=== PATIENT | male | born 1975 | race Caucasian/White ===

== ENCOUNTER 2020-01-03 08:29 | Outpatient (REF) | payer OTHER, SELFPAY ==
[2020-01-03 12:08] LABS: Anion Gap 12 (12-20); Blood Urea Nitrogen 18 mg/dL (9-16); Calcium 9.5 mg/dL (8.4-10.2); Carbon Dioxide 28 mmol/L (22-29); Chloride 105 mmol/L (96-108); Cholesterol 226 mg/dL; Estimated Glomerular Filt Rate > 60; Glucose Fasting 98 mg/dL (60-99); HDL Cholesterol 55 mg/dL; LDL Cholesterol Calculated 160 mg/dl; Potassium 4.7 mmol/l (3.3-5.1); Sodium 140 mmol/L (135-145); Triglycerides 55 mg/dL
== END 2020-01-03 08:30 | disposition home or self-care (01) ==
LOC: HO.HMGCLDS 08:29
PROVIDERS: PCP Internal Medicine; Visit Provider Internal Medicine
DX: I10 Essential (primary) hypertension (principal); R03.0 Elevated blood-pressure reading, without diagnosis of hypertension; Z80.0 Family history of malignant neoplasm of digestive organs
CPT/HCPCS: 80048; 80061

== ENCOUNTER → 2020-02-22 13:41 | Outpatient (BNVA) | payer OTHER, SELFPAY | PROVIDERS: PCP Internal Medicine; Visit Provider Physician Assistant | DX: Z80.0 Family history of malignant neoplasm of digestive organs (principal) | CPT/HCPCS: 99212 ==

== ENCOUNTER 2020-05-02 06:10 | Day surgery (SDC) | payer OTHER, SELFPAY ==
[2020-04-24 18:50] VITALS: BMI 26.9
--- NOTE | 2020-05-01 10:59 | HO.ANESPROP2 ---
Documented by User: Janelle Hawthorne 05/01/20 10:59 HPI - Anesthesia Eval Consult details Narrative: 45yo M for Colonoscopy [facility] Active Problems Active Problems: All Active Problems (Updated 04/24/20 @ 18:50 by Dorcas Martínez RN) Elevated blood pressure reading (Acute) Family history of colon cancer in mother (Acute) Myopia (Acute) Past Medical History Medical History Elevated blood pressure reading Family history of colon cancer in mother GERD (gastroesophageal reflux disease) Myopia Quadriceps tendon rupture Family History Family History Father HTN (hypertension) Mother Colon cancer Brother No problems noted. Brother No problems noted. Brother No problems noted. Sister No problems noted. Son No problems noted. Daughter No problems noted. Daughter No problems noted. Surgical History Surgical History History of eye surgery Social History Social History Household Members: Spouse Alcohol intake: never Smoking Status: Never smoker Second Hand Smoke Exposure: No Use of substances other than those prescribed or required for medical reasons: No Advance Directives: No Advance Directives Information Provided: No Advance Directives on File: No Recently lost weight without trying: No service: Yes Current occupation: [employer] Allergies Allergy/AdvReac Type Severity Reaction Status Date / Time No Known Allergies Allergy Verified 01/02/20 10:44 Exam Exam Date and Time: May 01, 2020 1059 Height,Weight and Vital Signs: Height 6 ft 2 in Weight 95.254 kg Assessment and Plan Assessment Anesthesia Assessment: Chart Reviewed Documented by User: Latrice French 05/02/20 07:35 [facility] Past Medical History Medical History Elevated blood pressure reading Family history of colon cancer in mother GERD (gastroesophageal reflux disease) Myopia Quadriceps tendon rupture Family History Family History Father HTN (hypertension) Mother Colon cancer Brother No problems noted. Brother No problems noted. Brother No problems noted. Sister No problems noted. Son No problems noted. Daughter No problems noted. Daughter No problems noted. Surgical History Surgical History History of eye surgery Social History Social History Household Members: Spouse Alcohol intake: never Smoking Status: Never smoker Second Hand Smoke Exposure: No Use of substances other than those prescribed or required for medical reasons: No Advance Directives: No Advance Directives Information Provided: No Advance Directives on File: No Recently lost weight without trying: No service: Yes Current occupation: [employer] Allergies Allergy/AdvReac Type Severity Reaction Status Date / Time No Known Allergies Allergy Verified 01/02/20 10:44 Exam Airway Mallampati Class: II TM Dist: >3cm Neck ROM: Full Loose/Missing/Broken Teeth: No Heart: RRR Lungs: CTA Assessment and Plan Assessment Anesthesia Assessment: Anesthesia Plan Discussed and Chart Reviewed Final Anesthetic Review NPO: Yes ASA Class: II Final Preanesthetic Review: Meds/Allgs Chart Reviewed, Consent Obtained/Reviewed and Anes Risks/Benef Reviewed Patient Risk: Low Procedure Risk: Low Anesthetic Plan Anesthetic Plan: MAC: Disposition: Standard PACU
[2020-05-02 06:38] VITALS: BP 137/80; PULSE 60; RESP 16; TEMP 36.9; O2SAT 98
[2020-05-02] MEDS: Lactated Ringers 1,000 ML 100 ML IVCONT (06:41)
--- NOTE | 2020-05-02 08:04 | P.HPSUR_ITS ---
Pre-Procedural Eval Section B Chief Complaint: Fhx of Colon Cancer Details of Present Illness: COLON CANCER SCREENING--+FAM HX: COLON CANCER MOTHER No clinical changes since preprocedure visit in February Relevant Family History (Specify if Yes): No Relevant Social History: None Present Medications: see Short Stay Collaborative assessment Medical History: No relevant PMH History of Previous Operations: No relevant previous surgery Allergies: Allergies Allergy/AdvReac Type Severity Reaction Status Date / Time No Known Allergies Allergy Verified 01/02/20 10:44 Review of Systems Sugical H&P ROS: Negative: Constitution, Cardiovascular, Respiratory, Psychi atric, Gastrointestinal and Musculoskeletal Exam Surgical H&P Exam: Normal: HEENT, Normal: Heart, Normal: Lungs, Normal: Extremities, Normal: Abdomen and Normal: Skin Plan Diagnosis/Plan: Unchanged I have reviewed the history and physical and performed a pertinent physical examination on my patient. No changes have occurred unless specified.yes
[2020-05-02 08:08] VITALS: BP 94/48; PULSE 61; RESP 16; TEMP 36.2; O2SAT 96
--- NOTE | 2020-05-02 08:08 | PM.OP ---
Brief Operative Note Date of Service: 05/02/20 Pre-op diagnosis: COLON CANCER SCREENING--MOTHER HAD COLON CANCER IN HER 50'S Post-op diagnosis: other (COLON POLYP) Procedure: COLONOSCOPY WITH EXCISIONAL POLYPECTOMY Implants: NONE Surgeon: Shelby Cole MD Anesthesia: MAC (ROCIO MCGILL) Estimated blood loss (mL): 5 Pathology: other (POLYP @ 18CM) Condition: stable Disposition: PACU
[2020-05-02 08:23] VITALS: BP 107/70; PULSE 51; RESP 16; O2SAT 98
--- NOTE | 2020-05-02 08:23 | W.PM.OPN ---
Operative Note Operative Note Date of Service: 05/02/20 Narrative: Pre-op diagnosis: COLON CANCER SCREENING--MOTHER HAD COLON CANCER IN HER 50'S Post-op diagnosis: other (COLON POLYP) Procedure: COLONOSCOPY WITH EXCISIONAL POLYPECTOMY Implants: NONE Surgeon: Shelby Cole MD Anesthesia: MAC (ROCIO MCGILL)\ FINDINGS: EDY: PROSTATE NORMAL Adult slim colonoscope introduced without difficulty. Passed thru sigmoid, descending, transverse, ascending colon into the cecum. Appendiceal orifice, ileocecal valve well seen. PREP: EXCELLENT. Slow withdrawal scope, good rotational views-polyp identified @ 18cm. Texture was suggestive but not clearly hyperplastic. This was removed excisionally with cold bx forceps. 18cm. No additional lesions seen. ARV clear. Estimated blood loss (mL): 5 Pathology: other (POLYP @ 18CM) Condition: stable Disposition: PACU PLAN: REPEAT COLON CANCER SCREENING WITH POSITIVE FAMILY HX WOULD BE 5 YEARS.
[2020-05-02 08:38] VITALS: BP 116/78; PULSE 46; RESP 16; O2SAT 98
== END 2020-05-02 09:15 | disposition home or self-care (01) ==
PROVIDERS: PCP Internal Medicine; Visit Provider Internal Medicine Gastroenterology
PROC: 0DJD8ZZ Inspection of Lower Intestinal Tract, Via Natural or Artificial Opening Endoscopic (ICD-10-PCS; CPT 45378; principal; 2020-05-02 07:30)
DX: Z12.11 Encounter for screening for malignant neoplasm of colon (principal); Z80.0 Family history of malignant neoplasm of digestive organs; K63.5 Polyp of colon; K21.9 Gastro-esophageal reflux disease without esophagitis; I10 Essential (primary) hypertension
CPT/HCPCS: 45380; 88305

== ENCOUNTER → 2020-05-08 10:04 | Outpatient (BNVA) | payer OTHER, SELFPAY | PROVIDERS: PCP Internal Medicine; Visit Provider Physician Assistant ==